=== PATIENT | female | born 1955 | race Hispanic/Latino ===

== ENCOUNTER 2020-10-17 18:13 | Emergency (ER) | payer SELFPAY ==
[~2020-10-17] VITALS: Ht 160 cm; Wt 153.0 kg
[~2020-10-17 18:13] MED LIST: ANTI HYPERTENSIVE; DILAUDID 2MG2 MG/TAB PO; LISINOP/HCTZ1 TA2 PO; LORTAB 7.57.5 MG PO; NAPROXEN500 MG PO; PHENERGAN25 MG RE; PROZAC10 MG PO
[2020-10-17] MEDS ORDERED: HYZAAR1 TA2 PO (19:32)
[2020-10-17] MEDS ORDERED: AMITRIPTYLINE H75 MG PO (19:33)
[2020-10-17] MEDS ORDERED: AMLODIPINE BESYL5 MG PO (19:34)
[2020-10-17] MEDS ORDERED: ROSUVASTATIN CA10 MG PO (19:36)
[2020-10-17 20:18] VITALS: BP 169/87
== END 2020-10-17 20:24 | disposition home or self-care (01) | DRG 93 ==
LOC: ED 18:13
DX: R20.0 Anesthesia of skin (principal); I10 Essential (primary) hypertension